=== PATIENT | male | born 1980 | race Two or more races ===

== ENCOUNTER 2017-12-05 23:42 | Emergency (ER) | payer MEDICAID ==
--- NOTE | 2017-12-06 00:27 | EDPHY ---
H & P Time Seen by Provider: 12/05/17 23:51 HPI/ROS: CC: left leg wound HPI: This 37-year-old male with past medical history including type 2 diabetes presents to the emergency department complaining of a tender and red area on the lateral aspect of his left lower leg which has been increasing over the last 3-4 days. He thinks it may be an ingrown hair. It has been oozing all day today. He has been using heat on it and states that he may have been so warm that it burned his skin slightly. He poked it with a pin today and tried to squeeze the pus out and states little came out initially but then it drained the rest of the day. He describes it as a dull pain which is worse when he stands up. He rates it at 7/10. Once he starts walking, the pain diminishes. He has no pain at the present time because he is lying down. He denies fever, chills, nausea, or vomiting. He states he was diagnosed with diabetes a couple of years ago and started on metformin but after he lost weight he no longer needed the metformin. But then his blood sugar got out of control again and he has been on 1000 mg of metformin twice a day for the last month. His blood sugar has been running between 300 and 500. He has a follow-up appointment in 4 days with the [facility] in [facility]. REVIEW OF SYSTEMS: Constitutional: No fever, no chills. Eyes: No discharge. No changes in vision. ENT: No sore throat. Respiratory: No cough, no shortness of breath. Cardiac: No chest pain, no palpitations. Gastrointestinal: No abdominal pain, no vomiting. Genitourinary: No hematuria or dysuria. Musculoskeletal: No back pain. Skin: See HPI. Neurological: No headache. Past Medical/Surgical History: PMH: Diabetes Mellitus Type 2, eczema PSH: Denied FH: Mother - DM; Father unknown NKDA Meds: Metformin 1000mg BID PCP: [facility] in [place] Social History: Denies Tobacco products; stopped ETOH two months ago due to elevated BG; no marijuana or other illicits. Smoking Status: Never smoked Physical Exam: General Appearance: Alert, no distress. Anxious. Eyes: Pupils equal and round no pallor or injection. ENT, Mouth: Mucous membranes are moist. Respiratory: There are no retractions, lungs are clear to auscultation. Cardiovascular: Regular rate and rhythm. Gastrointestinal: Abdomen is soft and nontender, no masses, bowel sounds normal. Neurological: Awake and alert, sensory and motor exams grossly normal. Skin: Warm and dry. Multiple tattoos. Musculoskeletal: Neck is supple, nontender. Extremities are symmetrical, full range of motion. There is a 6 x 5 cm area of erythema and induration on the lateral aspect of the left lower leg. It is warm. There is a small amount of purulent drainage oozing from the center. No red streaks. No bullae or vesicles. Psychiatric: Patient is oriented X 3, there is no agitation. DIFFERENTIAL DIAGNOSIS: After history and physical exam differential diagnosis was considered for but not limited to: cellulitis, abscess, ingrown hair, insect bite Constitutional: Initial Vital Signs Temperature (C) 97.9 F 12/05/17 23:50 Heart Rate 84 12/05/17 23:50 Respiratory Rate 18 12/05/17 23:50 Blood Pressure 129/91 H 12/05/17 23:50 O2 Sat (%) 95 12/05/17 23:50 O2 Delivery Mode Room Air Allergies/Adverse Reactions: No Known Allergies Allergy (Verified 11/24/15 12:07) Home Medications: Medication Instructions Recorded Metformin HCl 12/05/17 Amoxicillin/Clavulanate Pot 875 mg PO BID #14 tab 12/06/17 [Augmentin 875 MG TAB (*)] Medical Decision Making Procedures: Procedure: Abscess drainage. The patient's abscess was located on the lateral aspect of the left lower leg. I obtained verbal consent from the patient to drain the abscess who was informed about the possibility of bleeding and pain. The wound was prepped and draped in the usual sterile fashion. The skin was cleansed with ChloraPrep. Local anesthesia with 10 cc of 1% lidocaine with epinephrine. The abscess was incised with a number 11 blade and a small amount of purulent drainage was expressed. A culture was obtained. I probed and irrigated the wound and placed a small amount of antimicrobial packing which the patient will remove himself in the morning. The patient tolerated the procedure well. The procedure was performed by myself. ED Course/Re-evaluation: Patient was seen and examined. Vital signs reviewed. Due to the patient stating that his blood sugar had been running in the 300-500 range an IV was placed and a CBC, basic metabolic panel a and a venous blood gas was obtained. The patient's blood glucose was 347. His pH was 7.34, and his lactic acid was 1.2. CBC was unremarkable. The patient was given a L of IV fluids, and 1 g of Rocephin IV piggyback. He was given 1 tablet of Augmentin 875 mg to go to take in the morning prior to filling the Augmentin prescription. Please refer to the procedure note for a description of the incision and drainage. Wound culture is pending. The patient has an appointment with his primary care clinic in [place] this coming Friday. He was given extensive instructions on how to care for the wound. He was also given extensive instructions on a diabetic diet as he was concerned that he may not be eating appropriately. He was advised to take the discharge information and his medication with him to his appointment. He will need to have his medication adjusted due to the persistent elevation of blood glucose. All the patient's questions were answered at this time to the best my ability. - Data Points Laboratory Results: Laboratory Results 12/06/17 00:00 12/06/17 12/06/17 12/06/17 00:14 00:12 00:00 WBC 7.27 10^3/uL 10^3/uL (3.80-9.50) RBC 5.39 10^6/uL 10^6/uL (4.40-6.38) Hgb 17.2 g/dL g/dL (13.7-17.5) Hct 47.5 % % (40.0-51.0) MCV 88.1 fL fL (81.5-99.8) MCH 31.9 pg pg (27.9-34.1) MCHC 36.2 g/dL g/dL (32.4-36.7) RDW 12.7 % % (11.5-15.2) Plt Count 168 10^3/uL 10^3/uL (150-400) MPV 12.2 fL H fL (8.7-11.7) Neut % (Auto) 70.2 % % (39.3-74.2) Lymph % (Auto) 21.0 % % (15.0-45.0) [place] % (Auto) 6.7 % % (4.5-13.0) Eos % (Auto) 1.2 % % (0.6-7.6) Baso % (Auto) 0.6 % % (0.3-1.7) Nucleat RBC Rel Count 0.0 % % (0.0-0.2) Absolute Neuts (auto) 5.10 10^3/uL 10^3/uL (1.70-6.50) Absolute Lymphs (auto) 1.53 10^3/uL 10^3/uL (1.00-3.00) Absolute Monos (auto) 0.49 10^3/uL 10^3/uL (0.30-0.80) Absolute Eos (auto) 0.09 10^3/uL 10^3/uL (0.03-0.40) Absolute Basos (auto) 0.04 10^3/uL 10^3/uL (0.02-0.10) Absolute Nucleated RBC 0.00 10^3/uL 10^3/uL (0-0.01) Immature Gran % 0.3 % % (0.0-1.1) Immature Gran # 0.02 10^3/uL 10^3/uL (0.00-0.10) POC Blood Source VENOUS Patient Temperature 36.6 DEGREES DEGREES POC VBG pH 7.34 (7.31-7.42) POC VBG pCO2 36 mmHg L mmHg (40-44) POC VBG pO2 22 mmHg L mmHg (35-40) POC VBG HCO3 20 mEq/L L mEq/L (22-26) POC VBG Total CO2 21 mEq/L mEq/L (21-27) POC VBG Base Excess -6.0 mEq/L L mEq/L (-2.5-2.5) POC Mix VBG O2 Sat 36 % L % (65-75) POC Sodium 135 mEq/L mEq/L (135-145) POC Potassium 3.7 mEq/L mEq/L (3.3-5.0) POC Chloride 99.0 mEq/L mEq/L (97-110) POC Total CO2 20 mEq/L L mEq/L (22-31) POC BUN 9 mg/dL mg/dL (7-23) POC Creatinine 1.2 mg/dL mg/dL (0.7-1.3) POC Glucose 347 mg/dL H mg/dL (70-100) POC Lactic Acid Osmany 1.2 mmol/L mmol/L (0.7-2.1) POC Calcium 10.0 mg/dL mg/dL (8.5-10.4) Medications Given: Discontinued Medications Amoxicillin/Clavulanate Potassium (Augmentin 875mg) 875 mg PO EDNOW ONE PRN Reason: Protocol Stop: 12/06/17 00:42 Last Admin: 12/06/17 00:48 Dose: 875 mg Sodium Chloride (Ns) 1,000 mls @ 0 mls/hr IV ONCE ONE; Wide Open PRN Reason: Protocol Stop: 12/06/17 00:30 Last Admin: 12/06/17 00:31 Dose: 1,000 mls Ceftriaxone Sodium/Dextrose (Rocephin 1 Gm (Premix)) 50 mls @ 100 mls/hr IV EDNOW ONE PRN Reason: Protocol Stop: 12/06/17 01:09 Last Admin: 12/06/17 00:47 Dose: 50 mls Point of Care Test Results: Chemistry 12/06/17 00:12 POC Sodium 135 mEq/L mEq/L (135-145) POC Potassium 3.7 mEq/L mEq/L (3.3-5.0) POC Chloride 99.0 mEq/L mEq/L (97-110) POC Total CO2 20 mEq/L L mEq/L (22-31) POC BUN 9 mg/dL mg/dL (7-23) POC Creatinine 1.2 mg/dL mg/dL (0.7-1.3) POC Glucose 347 mg/dL H mg/dL (70-100) POC Calcium 10.0 mg/dL mg/dL (8.5-10.4) Blood Gas/Lactic Acid-Arterial 12/06/17 00:14 POC Blood Source VENOUS Blood Gas/Lactic Acid-Venous 12/06/17 00:14 POC VBG pH 7.34 (7.31-7.42) POC VBG pCO2 36 mmHg L mmHg (40-44) POC VBG pO2 22 mmHg L mmHg (35-40) POC VBG HCO3 20 mEq/L L mEq/L (22-26) POC VBG Total CO2 21 mEq/L mEq/L (21-27) POC VBG Base Excess -6.0 mEq/L L mEq/L (-2.5-2.5) POC Mix VBG O2 Sat 36 % L % (65-75) POC Lactic Acid Osmany 1.2 mmol/L mmol/L (0.7-2.1) Departure - Departure Disposition: Home, Routine, Self-Care Clinical Impression: Abscess Cellulitis Qualifiers: Site of cellulitis: extremity Site of cellulitis of extremity: lower extremity Laterality: left Qualified Code(s): L03.116 - Cellulitis of left lower limb Condition: Good Instructions: Amoxicillin/Clavulanate Potassium (By mouth), Cellulitis (ED), Meal Planning with Diabetes Exchanges (DC), Abscess (ED), Diabetic Hyperglycemia (ED) Additional Instructions: You may remove the packing from your wound tomorrow. Keep the wound clean and dry. Wash the wound with soap and water, pat dry, cover with a dressing/band- aid. Take your antibiotics as directed until gone. Make sure you keep your appointment with your [facility] on Friday ( [facility] in [place]). You will need additional medication to get your blood sugar under better control. Make sure you have them re-check your leg wound. Show them the antibiotic that you are on (Augmentin, also known as amoxicillin/clavulanate). You have a wound culture pending and it should be complete by the time you have your appointment on Friday. Have your clinic check the wound culture result. Return to the ED if symptoms change or worsen. Referrals: Patient,NotPresent [Unknown] - 12/09/17 Prescriptions: Amoxicillin/Clavulanate Pot [Augmentin 875 MG TAB (*)] 875 mg PO BID #14 tab
[2017-12-06] MEDS ORDERED: NS 1,000 ML IV ONE (00:29)
[2017-12-06] MEDS ORDERED: AMOXICILLIN/CLAVULANATE POT 875/125 MG TAB PO ONE (00:41)
[2017-12-06 01:10] LABS: PLATELET COUNT 168 10^3/uL (150-400)
[2017-12-06 01:28] VITALS: BP 125/76
== END 2017-12-06 01:25 | disposition home or self-care (01) ==
LOC: CED 23:42
PROC: 0H9LXZZ Drainage of Left Lower Leg Skin, External Approach (ICD-10-PCS; principal; 2017-12-05)
DX: L03.116 Cellulitis of left lower limb (principal); E11.9 Type 2 diabetes mellitus without complications
CPT/HCPCS: 80048-PO; 83605-PO; 96365; J0696